=== PATIENT | male | born 1995 ===

== ENCOUNTER 2017-03-14 21:48 | Emergency (ER) | payer SELFPAY ==
[2017-03-14 21:48] VITALS: BMI 20.7
[2017-03-14 22:36] VITALS: RESP 16
--- NOTE | 2017-03-14 22:49 | ED PDOC ---
Arrival/HPI - General Chief Complaint: Flu-like Symptoms Time Seen by Provider: 03/14/17 22:36 Historian: Patient - History of Present Illness Narrative History of Present Illness (Text): 03/14/17 22:44 21yo male who present with one week history of malaise, sore throat, headache, fever, nausea. states the symptoms became worse today. He did not take any medication for the symptoms. +Odynophagia. Denies dysphagia, abdominal pain, drooling, hoarseness, neck pain, sick contact, travel, any other complaint., Past Medical History - Provider Review Nursing Documentation Reviewed: Yes - Infectious Disease Hx of Infectious Diseases: None - Cardiac Hx Cardiac Disorders: No - Pulmonary Hx Respiratory Disorders: Yes Hx Asthma: Yes - Neurological Hx Neurological Disorder: No - HEENT Hx HEENT Disorder: No - Endocrine/Metabolic Hx Endocrine Disorders: No - Hematological/Oncological Hx Blood Disorders: No - Integumentary Hx Dermatological Disorder: No - Musculoskeletal/Rheumatological Hx Musculoskeletal Disorders: No Hx Arthritis: No - Gastrointestinal Hx Gastrointestinal Disorders: No - Genitourinary/Gynecological Hx Genitourinary Disorders: No - Psychiatric Hx Psychophysiologic Disorder: No Hx Substance Use: No - Anesthesia Hx Anesthesia: No Hx Anesthesia Reactions: No Hx Malignant Hyperthermia: No Family/Social History - Physician Review Nursing Documentation Reviewed: Yes Family/Social History: Unknown Family HX Smoking Status: Heavy Smoker > 10 Cigarettes Daily Hx Alcohol Use: Yes Hx Substance Use: No Allergies/Home Meds Allergies/Adverse Reactions: Allergies No Known Allergies Allergy (Verified 08/29/16 05:30) Review of Systems - Physician Review All systems were reviewed & negative as marked: Yes - Review of Systems Constitutional: Fatigue, Fevers Eyes: Normal ENT: Sore Throat Respiratory: Normal Cardiovascular: Normal Gastrointestinal: Nausea. absent: Abdominal Pain, Constipation, Vomiting, Hematochezia Genitourinary Male: Normal Musculoskeletal: Normal Skin: Normal Neurological: Normal Endocrine: Normal Hemo/Lymphatic: Normal Psychiatric: Normal Physical Exam Vital Signs Reviewed: Yes Vital Signs Temp Pulse Resp BP Pulse Ox 03/15/17 00:21 99.0 F 80 16 118/67 97 03/14/17 23:08 101.3 F H 03/14/17 21:48 101.3 F H 101 H 16 106/68 98 Temperature: Febrile Blood Pressure: Normal Pulse: Regular Respiratory Rate: Normal Appearance: Positive for: Well-Appearing, Non-Toxic, Comfortable Pain Distress: None Mental Status: Positive for: Alert and Oriented X 3 - Systems Exam Head: Present: Atraumatic, Normocephalic Pupils: Present: PERRL Extroacular Muscles: Present: EOMI Conjunctiva: Present: Normal Mouth: Present: Moist Mucous Membranes Pharnyx: Present: ERYTHEMA. No: EXUDATE, TONSILS ENLARGED, Peritonsilar Swelling, Uvular Deviation, Muffled/Hoarse Voice, Strider, Soft Palate/Uvular Edema Neck: Present: Normal Range of Motion Respiratory/Chest: Present: Clear to Auscultation, Good Air Exchange. No: Respiratory Distress, Accessory Muscle Use Cardiovascular: Present: Regular Rate and Rhythm, Normal S1, S2. No: Murmurs Abdomen: Present: Normal Bowel Sounds. No: Tenderness, Distention, Peritoneal Signs, Rebound, Guarding, McBurney's Point Tender, Rovsing's Sign Present Back: Present: Normal Inspection Upper Extremity: Present: Normal Inspection. No: Cyanosis, Edema Lower Extremity: Present: Normal Inspection. No: Edema Neurological: Present: GCS=15, CN II-XII Intact, Speech Normal Skin: Present: Warm, Dry, Normal Color. No: Rashes Psychiatric: Present: Alert, Oriented x 3, Normal Insight, Normal Concentration Medical Decision Making ED Course and Treatment: 03/15/17 00:35 Pt seen in ED for pharyngitis. His Temp improved in ED on re evaluation. He was noted to the tolerating soda in ED. DC home with abx. Referred to the clinic. TRT ED for any new or worsening symptoms - Medication Orders Current Medication Orders: Discontinued Medications Dexamethasone (Decadron Inj) 10 mg IM STAT STA Stop: 03/14/17 22:44 Last Admin: 03/14/17 23:07 Dose: 10 mg Ibuprofen (Motrin Tab) 600 mg PO STAT STA Stop: 03/14/17 22:44 Last Admin: 03/14/17 23:08 Dose: 600 mg Ondansetron HCl (Zofran Odt) 4 mg PO STAT STA Stop: 03/14/17 22:45 Last Admin: 03/14/17 23:08 Dose: 4 mg Penicillin V Potassium (Penicillin Vk Tab) 500 mg PO STAT STA PRN Reason: Protocol Stop: 03/14/17 22:44 Last Admin: 03/14/17 23:08 Dose: 500 mg Disposition/Present on Arrival - Present on Arrival Any Indicators Present on Arrival: No History of DVT/PE: No History of Uncontrolled Diabetes: No Urinary Catheter: No History of Decub. Ulcer: No History Surgical Site Infection Following: None - Disposition Have Diagnosis and Disposition been Completed?: Yes Diagnosis: Pharyngitis Disposition: HOME/ ROUTINE Disposition Time: 22:55 Patient Plan: Discharge Condition: STABLE Discharge Instructions (ExitCare): Pharyngitis (ED) Additional Instructions: Do warm water gargle and rest Follow up with your Doctor/clinic Return to ED for any new or worsening symptoms Prescriptions: Ibuprofen [Motrin Tab] 600 mg PO Q6 #15 tab Ondansetron ODT [Zofran ODT] 4 mg PO Q8 #7 odt Penicillin VK [Pen-Vee K] 500 mg PO BID #14 tab Referrals: [facility] [place] [facility] [place] - Follow up with primary Forms: WORK NOTE
[2017-03-15 00:22] VITALS: BP 118/67; PULSE 80; TEMP 99; O2SAT 97
== END 2017-03-15 00:35 | disposition home or self-care (01) ==
LOC: ED 21:48
DX: J02.9 Acute pharyngitis, unspecified (principal)
CPT/HCPCS: 96372; 99283; J1100